=== PATIENT | female | born 1995 | race Caucasian/White ===

== ENCOUNTER 2017-11-07 22:18 | Emergency (ER) | payer BC ==
[2017-11-07 22:48] VITALS: BP 137/106; PULSE 70; O2SAT 99
[2017-11-07] MEDS ORDERED: Zofran 4 MG/2 ML VIAL IV ONE (22:52)
[2017-11-07] MEDS ORDERED: Sodium Chloride 0.9% 1000 ML 1,000 ML IV SCH (23:00)
[2017-11-07 23:22] LABS: BASOPHIL % 0.2 % (0.0-0.4); Basophil (Absolute #) 0.02 (0-0.4); Eosinophil % 3.2 % (0.00-5.0); Eosinophil (Absolute #) 0.31 (0-0.5); Granulocyte Absolute (ANC) 5.58 (1.4-6.9); Granulocytes % 56.8 % (36.0-66.0); Hematocrit 43.2 % (35-47); Hemoglobin 14.4 gm/dl (12.0-16.0); Lymphocyte (Absolute #) 3.17 (1.0-4.6); Lymphocytes % 32.3 % (24.0-44.0); Mean Cell Volume 90.9 fl (78-100); Mean Corpuscular Hemoglobin 30.3 pg (26-32); Mean Corpuscular Hgb Concent. 33.3 g/dl (32-36); Mean Platelet Volume 9.9 fl (6-9.5); Monocyte (Absolute #) 0.74 (0.0-1.3); Monocytes % 7.5 % (0.0-12.0); Platelet Count 300 K/mm3 (150-450); Red Blood Count 4.75 M/mm3 (4.1-5.4); Red Cell Distribution Width 13.8 % (11.5-14.0); White Blood Count 9.8 K/mm3 (4.0-10.5)
[2017-11-07] MEDS ORDERED: Sodium Chloride 0.9% 1000 ML 1,000 ML ONE (23:23)
[2017-11-07] MEDS ORDERED: Zofran 4 MG/2 ML VIAL ONE (23:23)
--- NOTE | 2017-11-07 23:24 | ERPHSYRPT ---
- History of Present Illness Time Seen by Provider: 11/07/17 22:35 Historian: patient Exam Limitations: clinical condition Patient Subjective Stated Complaint: generalized abdominal pain x 24 hours increading tonight. denies N/V/D Triage Nursing Assessment: alert and in no distress. states diffuse abdominal pain. denies N/V/D at this time. staes had normal BM today. abdomen soft + BS x4. denies fever Physician History: PATIENT COMPLAINS OF PERIUMBILICAL ABDOMINAL PAINS SINCE EARLIER THIS AM, ASSOCIATED WITH NAUSEA. DENIES EMESIS, DIARRHEA, FEVER, URINARY SYMPTOMS, VAGINAL DISCHARGE OR BLEEDING. Timing/Duration: today Activities at Onset: none Quality: cramping Abdominal Pain Onset Location: periumbilical, suprapubic Pain Radiation: no radiation Severity of Pain-Max: moderate Severity of Pain-Current: moderate Modifying Factors: Improves With: other (NAUSEA) Associated Symptoms: nausea Previous symptoms: no prior history Allergies/Adverse Reactions: Penicillins Allergy (Verified 11/07/17 22:52) Immunizations Up to Date: Yes - Review of Systems Constitutional: No Fever, No Chills Eyes: No Symptoms Ears, Nose, & Throat: No Symptoms Respiratory: No Symptoms, No Cough, No Dyspnea Cardiac: No Chest Pain, No Edema, No Syncope Abdominal/Gastrointestinal: Abdominal Pain, Nausea, No Vomiting, No Diarrhea Genitourinary Symptoms: No Symptoms, No Dysuria Musculoskeletal: No Back Pain, No Neck Pain Skin: No Rash Neurological: No Dizziness, No Focal Weakness, No Sensory Changes Psychological: No Symptoms Endocrine: No Symptoms All Other Systems: Reviewed and Negative - Past Medical History Pertinent Past Medical History: Yes Cardiac History: Other Other Medical History: heart murmur - Past Surgical History Past Surgical History: Yes - Social History Smoking Status: Never smoker Exposure to second hand smoke: No Drug Use: none Patient Lives Alone: No - Female History Hx Last Menstrual Period: 2 weeks Hx Now: No - Nursing Vital Signs Nursing Vital Signs: Initial Vital Signs Temperature 98.6 F 11/07/17 22:26 Pulse Rate 70 11/07/17 22:26 Respiratory Rate 16 11/07/17 22:26 Blood Pressure 137/106 11/07/17 22:26 O2 Sat by Pulse Oximetry 99 11/07/17 22:26 Pain Scale Pain Intensity 4 - Physical Exam General Appearance: no apparent distress, alert Eye Exam: PERRL/EOMI, eyes nml inspection Ears, Nose, Throat Exam: normal ENT inspection, pharynx normal, moist mucous membranes Neck Exam: normal inspection, non-tender, supple, full range of motion Respiratory Exam: normal breath sounds, lungs clear, No respiratory distress Cardiovascular Exam: regular rate/rhythm, normal heart sounds Gastrointestinal/Abdomen Exam: soft, normal bowel sounds, tenderness (MINIMAL SUPRATENDERNESS, NO GUARDING OR REBOUND TENDERNESS), other (THERE IS NO UMBILICAL HERNIA OR TENDERNESS), No mass Back Exam: normal inspection, normal range of motion, No CVA tenderness, No vertebral tenderness Extremity Exam: normal inspection, normal range of motion, pelvis stable Neurologic Exam: alert, oriented x 3, cooperative, normal mood/affect, nml cerebellar function, sensation nml, No motor deficits Skin Exam: normal color, warm, dry SpO2 Interpretation: normal SpO2: 99 Oxygen Delivery: Room Air - CT Exams Abdomen/Pelvis CT Interpretation: Tele-radiologist Report (SMALL PELVIC FREE FLUID, TINY PERILUMBILICAL FAT -CONTAINING HERNIA, MINIMAL STRANDING WITHIN THE FAT WITHIN THE HERNIA) Ordered Tests: Active Orders 24 hr Category Date Time Status ABDOMEN AND PELVIS W CONTRAST [CT] Stat Exams 11/07/17 22:53 Taken BMP Stat Lab 11/07/17 23:10 Completed CBC W DIFF Stat Lab 11/07/17 23:10 Completed HCG,QUALITATIVE URINE Stat Lab 11/07/17 23:59 Completed Medication Summary Generic Name Dose Route Start Last Admin Trade Name Freq PRN Reason Stop Dose Admin Sodium Chloride 1,000 mls @ 250 mls/hr 11/07/17 23:00 11/07/17 23:24 Sodium Chloride 0.9% 1000 Ml IV 12/07/17 22:59 250 mls/hr .Q4H VINAY Administration Discontinued Medications Generic Name Dose Route Start Last Admin Trade Name Freq PRN Reason Stop Dose Admin Ketorolac Tromethamine 30 mg 11/08/17 00:34 11/08/17 00:38 Toradol 30 Mg Injection IV 11/08/17 00:35 30 mg STAT ONE Administration Ketorolac Tromethamine Confirm 11/08/17 00:36 Toradol 30 Mg Injection Administered 11/08/17 00:37 Dose 30 mg .ROUTE .STK-MED ONE Ondansetron HCl 4 mg 11/07/17 22:52 11/07/17 23:24 Zofran 4 Mg/2 Ml Vial IV 11/07/17 22:53 4 mg STAT ONE Administration Ondansetron HCl Confirm 11/07/17 23:23 Zofran 4 Mg/2 Ml Vial Administered 11/07/17 23:24 Dose 4 mg .ROUTE .STK-MED ONE Lab/Rad Data: Laboratory Result Diagrams 11/07/17 23:10 11/07/17 23:10 Laboratory Results 11/08/17 11/07/17 11/07/17 Range/Units 00:20 23:10 23:10 WBC 9.8 (4.0-10.5) K/mm3 RBC 4.75 (4.1-5.4) M/mm3 Hgb 14.4 (12.0-16.0) gm/dl Hct 43.2 (35-47) % MCV 90.9 (78-100) fl MCH 30.3 (26-32) pg MCHC 33.3 (32-36) g/dl RDW 13.8 (11.5-14.0) % Plt Count 300 (150-450) K/mm3 MPV 9.9 H (6-9.5) fl Gran % 56.8 (36.0-66.0) % Lymphocytes % 32.3 (24.0-44.0) % Monocytes % 7.5 (0.0-12.0) % Eosinophils % 3.2 (0.00-5.0) % Basophils % 0.2 (0.0-0.4) % Basophils # 0.02 (0-0.4) Sodium 141 (136-145) mEq/L Potassium 4.2 (3.5-5.1) mEq/L Chloride 105 (98-107) mEq/L Carbon Dioxide 27.7 (21-32) mEq/L Anion Gap 12.7 (5-15) MEQ/L BUN 16 (9-20) mg/dL Creatinine 0.97 (0.55-1.30) mg/dl Estimated GFR > 60 ML/MIN Glucose 88 (70-110) MG/DL Calcium 9.0 (8.5-10.1) mg/dL Ur Collection Type Urine Color (YELLOW) Urine Appearance (CLEAR) Urine pH (5-6) Ur Specific [place] (1.005-1.025) Urine Protein (Negative) Urine Ketones (NEGATIVE) Urine Blood (0-5) Abilio/ul Urine Nitrite (NEGATIVE) Urine Bilirubin (NEGATIVE) Urine Urobilinogen (0-1) mg/dL Ur Leukocyte Esterase (NEGATIVE) Urine Culture Reflexed (NO) Urine Glucose (NEGATIVE) mg/dL Urine HCG, Qual NEGATIVE (Negative) Specimen Received 11/07/17 Range/Units 00:20 WBC (4.0-10.5) K/mm3 RBC (4.1-5.4) M/mm3 Hgb (12.0-16.0) gm/dl Hct (35-47) % MCV (78-100) fl MCH (26-32) pg MCHC (32-36) g/dl RDW (11.5-14.0) % Plt Count (150-450) K/mm3 MPV (6-9.5) fl Gran % (36.0-66.0) % Lymphocytes % (24.0-44.0) % Monocytes % (0.0-12.0) % Eosinophils % (0.00-5.0) % Basophils % (0.0-0.4) % Basophils # (0-0.4) Sodium (136-145) mEq/L Potassium (3.5-5.1) mEq/L Chloride (98-107) mEq/L Carbon Dioxide (21-32) mEq/L Anion Gap (5-15) MEQ/L BUN (9-20) mg/dL Creatinine (0.55-1.30) mg/dl Estimated GFR ML/MIN Glucose (70-110) MG/DL Calcium (8.5-10.1) mg/dL Ur Collection Type CLEAN CATCH Urine Color YELLOW (YELLOW) Urine Appearance CLEAR (CLEAR) Urine pH 5.0 (5-6) Ur Specific [place] 1.020 (1.005-1.025) Urine Protein NEGATIVE (Negative) Urine Ketones NEGATIVE (NEGATIVE) Urine Blood NEGATIVE (0-5) Abilio/ul Urine Nitrite NEGATIVE (NEGATIVE) Urine Bilirubin NEGATIVE (NEGATIVE) Urine Urobilinogen NORMAL (0-1) mg/dL Ur Leukocyte Esterase NEGATIVE (NEGATIVE) Urine Culture Reflexed NO (NO) Urine Glucose NEGATIVE (NEGATIVE) mg/dL Urine HCG, Qual (Negative) Specimen Received 11/08/17 0025 - Progress Progress: improved Counseled pt/family regarding: lab results, diagnosis, need for follow-up, rad results - Departure Time of Disposition: 02:15 Departure Disposition: Home Clinical Impression: RUPTURED OVARIAN CYST, TINY PERIUMBILICAL FAT-CONTAINING HERNIA Condition: Stable Critical Care Time: No Referrals: AGUSTINA ROMO [Primary Care Provider] - Additional Instructions: BEGIN TORADOL 10MG EVERY 6 HOURS NEEDED FOR PAIN. ANTIBIOTIC KEFLEX 500MG EVERY 8 HOURS FOR 7 DAYS. CONSULT YOUR PRIMARY CARE PROVIDER FOR FOLLOWUP IN 1 WEEK. Prescriptions: Ketorolac Tromethamine [Toradol] 10 mg PO Q6H PRN PRN #20 tablet PRN Reason: Pain Cephalexin Mh 500 mg [Keflex 500 mg] 500 mg PO TID #21 capsule
[2017-11-07 23:39] LABS: ANION GAP 12.7 MEQ/L (5-15); BLOOD UREA NITROGEN 16 mg/dL (9-20); CHLORIDE 105 mEq/L (98-107); Carbon Dioxide 27.7 mEq/L (21-32); Creatinine 1 0.97 mg/dl (0.55-1.30); EST GLOMERULAR FILTRATION RATE > 60 ML/MIN; Glucose 88 MG/DL (70-110); Potassium 4.2 mEq/L (3.5-5.1); SODIUM 141 mEq/L (136-145)
[2017-11-08 00:29] LABS: Appearance CLEAR (CLEAR); Bilirubin NEGATIVE (NEGATIVE); Blood NEGATIVE Ery/ul (0-5); Glucose NEGATIVE (NEGATIVE); Ketones NEGATIVE (NEGATIVE); Leukocyte Esterase NEGATIVE (NEGATIVE); Nitrite NEGATIVE (NEGATIVE); Protein,Urine Dip NEGATIVE (Negative); Urobilinogen NORMAL mg/dL (0-1)
[2017-11-08] MEDS ORDERED: TORAdol 30 mg Injection IV ONE (00:34)
[2017-11-08] MEDS ORDERED: TORAdol 30 mg Injection ONE (00:36)
--- NOTE | 2017-11-08 09:18 | XRAY ---
Indication: Abdominal pain and nausea. Multiple contiguous axial images obtained through the abdomen and pelvis using 80 cc Isovue 370 contrast only. Comparison: None Lung bases are clear. Heart is not enlarged. Noncontrasted bowel loops appear nonobstructed. Normal appendix. Small pelvic free fluid presumed from ruptured/leaking cyst. No free air. Gallbladder partially contracted without gallstones. Mild fatty liver. Remaining liver, pancreas, gallbladder, spleen, adrenal glands, kidneys, ureters, bladder, uterus, and aorta appear unremarkable. No pathologic retroperitoneal lymphadenopathy. Osseous structures intact. Tiny fatty umbilical hernia. Impression: 1. Small pelvic free fluid presumed physiologic from rupture/leaking cyst. 2. Fatty liver and fatty umbilical hernia. 3. Remaining CT abdomen/pelvis with contrast exam is negative. Comment: Preliminary interpretation was made by [facility]. No critical discrepancy. CT DI 23.68
== END 2017-11-08 02:24 | disposition home or self-care (01) ==
LOC: ED 22:18
DX: N83.209 Unspecified ovarian cyst, unspecified side (principal); K42.9 Umbilical hernia without obstruction or gangrene
CPT/HCPCS: 36000; 36415; 74177; 80048; 81002; 84703; 85025; 96360; 96361; 96374; 96375; 99283; 99285; J1885; J2405